=== PATIENT | male | born 1995 | race Two or more races ===

== ENCOUNTER → 2021-04-20 | Outpatient (CLI) | payer SELFPAY ==
[2021-04-20 12:34] LABS: Source, Urine Clean Catch
[2021-04-20 12:43] LABS: White Blood Cells, Urine 50-100 /hpf (0-5)
[2021-04-20 12:44] LABS: Bacteria Many /hpf; Renal Epithelial Mod /hpf (0-Rare); Squamous Epithelial Cells Few /hpf (Few)
== END | disposition home or self-care (01) ==
LOC: LAB SHORT 12:27
PROVIDERS: Physician Assistant
DX: R31.9 Hematuria, unspecified (principal)
CPT/HCPCS: 81015; 87077; 87086; 87186

== ENCOUNTER → 2023-10-15 | Outpatient (CLI) | payer OTHER | END | disposition home or self-care (01) | LOC: LAB 09:15 → LAB SHORT 09:15 | DX: R30.0 Dysuria (principal); R35.0 Frequency of micturition | CPT/HCPCS: 87077; 87086; 87186 ==